=== PATIENT | female | born 1960 | race Caucasian/White ===

== ENCOUNTER 2017-04-30 01:06 | Emergency (ER) | payer OTHER ==
[~2017-04-30] VITALS: Ht 170.2 cm; Wt 63.5 kg
[2017-04-30 01:27] LABS: HEMOGLOBIN 13.7 g/dL (12.2-16.2); LYMPH # 0.6 K/mm3 (0.7-4.5); LYMPH % 9.5 % (10-50.0)
--- OUTSIDE RECORDS SUMMARY | 2017-04-30 01:37 | External Medical Summary Rpt ---
Author Author HARITHA Address Unknown Phone Purpose Continuity of Care Document - through 2016
--- OUTSIDE RECORDS SUMMARY | 2017-04-30 01:37 | External Medical Summary Rpt ---
Author Author MAUREEN Barahona, MAUREEN Barahona Organization [employer] Address Unknown Phone Unavailable
--- OUTSIDE RECORDS SUMMARY | 2017-04-30 01:37 | External Medical Summary Rpt ---
Demographics Preferred Language Bengali Marital Status Unknown Restorationism Affiliation Unknown Race Unknown Ethnic Group Unknown Author Author HARITHA Address Unknown Phone Immunization No patient found.
--- OUTSIDE RECORDS SUMMARY | 2017-04-30 01:37 | External Medical Summary Rpt ---
Author Author [employer] Organization [employer] Address Unknown Phone Unavailable Purpose Continuity of Care Document - through 2016
--- OUTSIDE RECORDS SUMMARY | 2017-04-30 01:37 | External Medical Summary Rpt ---
Demographics Preferred Language Italian Marital Status Unknown Yarsanism Affiliation Unknown Race Unknown Ethnic Group Unknown Author Author HARITHA Address Unknown Phone Immunization No patient found.
[2017-04-30 01:56] LABS: BUN 18 mg/dL (7-18)
[2017-04-30 02:03] LABS: GFR (ESTIMATED) 87 ML/MIN (59-)
--- NOTE | 2017-04-30 02:18 | Emergency Room Report ---
History of Present Illness Time Seen by [id number] Presenting Problem in Triage Pt arrived:Walked Presenting Problem:C/O NAUSEA AND UNABLE TO SLEEP. C/O MUSCLE SPASMS BETWEEN SHOULDER BLADES INTERMITTENTLY. STATES IT HURTS WORSE WITH MOVEMENT OF HEAD. 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 N Clinical Suspician of Infection? N Mental Status: 1 - Regular (Normal Baseline) Sepsis Risk:Low Sepsis Risk Have you (or family members/close friends) recently traveled outside the [place]? N If Yes, where/when: Have you had exposure to infectious disease within the past month? N TB? Other? Specify: Source patient, RN notes reviewed, family, old records Exam Limitations no limitations Comment upper t spine /lower c spine pain with mm spasm and pain with mov with no trauma and no chest pain with nausea and worse during night Cardiac Chest Pain Chest pain indicative of cardiac No Timing/Duration this evening Severity moderate ALLERGIES Coded Allergies: Pork (04/30/17) History Medical History General CAD? No Angina: No GA: No Hypertension? No Hyperlipidemia? No CHF? No DVT? No PE? No COPD? No Asthma? No Anemia? No GERD? No GI Bleed? No Hernia? No Thyroid Problems? No Hypothyroidism? No CVA? No Seizures? No Diabetes? No Renal Insuffiency? No End Stage Renal Disease? No UTI? No Stones? No BPH? No GB Disease: No Nephritic Syndrome? No Asplenia? No Hepatitis? No Sickle Cell Disease? No Arthritis? No Migraines? No Cataracts? No Glaucoma? No MRSA? No HIV? No TB? No Anxiety? No Depression? No Cancer? 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 Respiratory denies cough, denies shortness of breath, denies wheezing Cardiovascular denies chest pain, denies palpitations, denies syncope Gastrointestinal see HPI, denies abdominal pain, denies diarrhea, nausea, denies vomiting Genitourinary denies: dysuria, frequency, hesitancy, hematuria. Musculoskeletal see HPI, denies back pain, denies joint pain, denies joint swelling, neck pain Skin denies rash Psychiatric/Neurological denies headache, denies seizure Physical Exam Vital Signs Vital Signs Date Time Temp Pulse Resp B/P Pulse O2 O2 Flow FiO2 Ox Delivery Rate 04/30 0326 98.4 74 18 102/70 95 04/30 0244 98.4 82 18 113/70 95 04/30 0236 18 04/30 0236 18 04/30 0202 98.4 85 20 121/86 96 04/30 0113 98.4 78 20 127/80 98 - WBC >12,000 or <4,000 or 10% bands? 2 or more SIRS Criteria Met? B/P:121/86 MAP:95 Creatinine >2.0? UA output<0.5ml/kg/hr for 2 hrs? Platelet count >100,000? Lactate >2.0mmol/1? INR >1.2 or PTT > than 60 sec? Evidence of Organ Dysfunction? Provider documented clinical suspician of infection? N Sepsis Criteria Count: 1 Sepsis Risk: Low Sepsis Risk General Appearance no apparent distress Eye Exam - bilateral eye PERRL, bilateral eye EOMI Ear, Nose, Throat normal ENT inspection Neck limited range of motion, tender lateral Respiratory Status No: respiratory distress. Lung Sounds bilateral: lungs clear. 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 No Results/Orders Laboratory Tests 04/30/17 0120: ESR 12 04/30/17 0120: Sodium 139, Potassium 4.3, Chloride 102, Carbon Dioxide 31, BUN 18, Creatinine 0.7, Estimated Creat Clear 90, Estimated GFR (MDRD) 87, Glucose 114 H, Calcium 8.7, Total Bilirubin 0.4, AST 19, ALT 24, Alkaline Phosphatase 43 L, Creatine Kinase 139, CK-MB (CK-2) Rel Index 0.7, CK and CKMB Interp 1.0, Troponin I < 0.02, Total Protein 7.4, Albumin 4.0, Globulin 3.4 H, Albumin/Globulin Ratio 1.2, Amylase 32, Lipase 161, WBC 6.0, RBC 4.20, Hgb 13.7, Hct 40.5, MCV 96.5, RDW 12.3, Plt Count 219, MPV 7.1 L, Gran % 85.2 H, Gran # 5.2, Total Counted 100, Lymphocytes % 9.5 L, Monocytes % 2.8, Eosinophils % 2.3, Basophils % 0.2, Neutrophils 82 H, Lymphocytes (Manual) 14, Lymphocytes # 0.6 L, Monocytes ( Manual) 1 L, Monocytes # 0.2, Eosinophils # 0.1, Eosinophils # (Manual) 3, Basophils # 0.0, Platelet Estimate NORMAL, Hypochromasia 1+, Anisocytosis 1+, PUBS MCHC 33.9, MCH 32.7 H Current Medication Orders Sig/Rick Start time Last Medication Dose Route Stop Time Status Admin Ketorolac 0 .STK-MED ONE 04/30 232 DC Tromethamine .ROUTE Methylprednisolone 0 .STK-MED ONE 04/30 232 DC Sodium Succinate .ROUTE Morphine Sulfate 0 .STK-MED ONE 04/30 232 DC .ROUTE Ondansetron HCl 0 .STK-MED ONE 04/30 232 DC .ROUTE Ketorolac 30 MG ONCE ONE 04/30 230 DC 04/30 Tromethamine IV 04/30 Methylprednisolone 125 MG ONCE ONE 04/30 230 DC 04/30 Sodium Succinate IV 04/30 Morphine Sulfate 4 MG ONCE ONE 04/30 230 DC 04/30 IV 04/30 Ondansetron HCl 4 MG ONCE ONE 04/30 230 DC 04/30 IV 04/30 Aspirin 0 .STK-MED ONE 04/30 131 DC .ROUTE Aspirin 324 MG ONCE ONE 04/30 130 DC 04/30 PO 08/15 0131 0132 Sodium Chloride 10 ML PRN PRN 04/30 0130 AC IV 05/01 0121 Orders Procedure Date/time Status SED RATE 04/30 0230 Complete ELECTROCARDIOGRAM REQUEST 04/30 012 Active CHEST-PORTABLE 04/30 012 Active IV SALINE LOCK 04/30 012 Active URINALYSIS/COMPLETE 04/30 012 Active LIPASE 04/30 012 Complete CBC WITH AUTO DIFF 04/30 122 Complete CARDIAC ENZYMES 04/30 122 Complete CHEM 12 PROFILE 04/30 012 Complete AMYLASE 04/30 012 Complete DIFFERENTIAL-WBC 04/30 012 Complete 12 LEAD EKG-BESSON (INITIAL) 04/30 UNK Active CM/EKG 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 of ischemic chgs XRAY/CT/US XRAY/CT/US XRAY chest XR interpretation by reviewed by me Xray Results normal/NAD Departure Departure Time of Disposition 0240 Disposition DC Home or Self Care(routine) Clinical Impression Primary Impression: Acute thoracic myofascial strain Qualifiers: Encounter type: initial encounter Qualified Code: S29.019A - Strain of muscle and tendon of unspecified wall of thorax, initial encounter Condition STABLE Referrals Steven Jay MD (Family) Patient Instructions DI for Thoracic Back Pain Additional Instructions call pcp for follow up Discharge Counseling Counseled pt/family regarding diagnosis, test results, medications/RX, follow up needs ED Critical Care Critical Care No at [id number]
[2017-04-30 02:27] LABS: NEUTROPHILS 82 % (42-76)
[2017-04-30 03:41] VITALS: BP 102/70
--- NOTE | 2017-04-30 07:25 | RADIOLOGY REPORT PS360 ---
CHEST-PORTABLE HISTORY: MID BACK PAIN, NAUSEA ORDERING PHYSICIAN: Jazmin Alston MD PATIENT AGE: 56 years COMPARISON: None available FINDINGS: The cardiomediastinal silhouette and pulmonary vascularity are within normal limits. The lungs are clear without infiltrates, suspicious nodules, or pleural effusions. No acute bony abnormalities. Multiple calcified granulomas IMPRESSION: Old granulomatous disease, no acute finding
== END 2017-04-30 03:42 | disposition home or self-care (01) ==
LOC: ER 01:06
PROVIDERS: Emergency Medicine
DX: S29.019A Strain of muscle and tendon of unspecified wall of thorax, initial encounter (principal)
CPT/HCPCS: J2405